=== PATIENT | female | born 1965 | race Caucasian/White ===

== ENCOUNTER 2023-06-23 09:45 | Outpatient (RCR) | payer OTHER, SELFPAY ==
--- NOTE | 2023-05-07 14:30 | PT.OPPOC ---
Physical, Occupational & Speech Therapy At [facility] Current Diagnoses Other chronic pain (05/07/23) Pain in left shoulder (05/07/23) Stiffness of left shoulder, not elsewhere classified (05/07/23) Other injury of muscle, fascia and tendon of long head of biceps, left arm, subsequent encounter (05/07/23) Visit Care Team Role Provider Type Ayaka Oneill MD Attending Provider Physician Family Provider Primary Care Provider Referring Provider Specialty: Family Practice Address: [address] [place] [address], [facility] Fax: Email: [email or web address] Plan Of Care PT-OP-T Assessment and Plan Start: 05/07/23 15:49 Freq: Status: Active Protocol: Document 05/07/23 13:45 DCW (Rec: 05/08/23 11:50 DCW [id number]) Physical Therapy Assessment Rehab Potential Rehabilitation Potential Good Evaluation Complexity Number of Personal Factors/Comorbidities 1-2 Number of Body Systems Impaired 1-2 Clinical Presentation at Evaluation Stable Impairments Impairments Activity Tolerance,Functional Activities,Functional Mobility ,Pain,ROM,Soft Tissue Mobility ,Strength Goals Two Impairment Limited left shoulder flexion (124?) and abduction (107?) ROM Conservation Engineer Goal (LTG) Pt to demonstrate improve left shoulder flexion and extension to at least 150? each in order to improve ability to perform overhead household activities. LTG Duration 07/06/23 One Impairment Pt does not have an appropriate home exercise program Short Term Goal (STG) Pt to be independent and compliant with an appropriate HEP STG Duration 06/05/23 Assessment Summary Assessment Pt presents with signs and symptoms consistent with overuse injury of her left shoulder. Based on point- specific location of pain ( bicipital groove), positive biceps testing, and pain with positioning that specifically elongates the long head biceps tendon, most likely diagnosis would likely be Bicipital tendonitis vs rotator cuff injury vs labral involvement, however difficult to truly DDx without further advanced imaging. Pt provided hnd-out for HEP focusing on strengthening shoulder girdle, as well as discussion on limiting exercises/functional activities which create biceps overuse. Pt should benefit from skilled therapy focusing on continued strengthening, inflammation management, shoulder mobility, and pain- control. Physical Therapy Plan Frequency and Duration Frequency of Treatment 2x/Week Plan of Care Start Date 05/07/23 Plan of Care End Date 07/06/23 Therapeutic Interventions Therapeutic Interventions Home Exercise Program,Joint Mobilizations,Manual Therapy, Patient/Caregiver Education, Self-Care/Home Management,Soft Tissue Mobilization, Therapeutic Activities, Therapeutic Exercises Modalities Cold Pack/Ice Massage,Electric Stimulation,Hot Packs, Ultrasound Next Visit Focus/Plan Next Note Type Treatment Note Next Visit Plan Shoulder ROM/flexibility, Shoulder girdle strengthening, pain-control modalities as needed Plan of Care Dates Plan of Care Start Date 05/07/23 Plan of Care End Date 07/06/23 Electronically Signed by: Martin John, PT 05/08/23 2018 If you are in agreement with this Plan of Care, please return a signed and dated copy. I have reviewed this Plan of Care and certify that the skilled therapy services above are required to meet the patient?s needs. Physician Signature Date Printed Name and Credentials Clinical Instructor Signature Printed Name and Credentials
--- NOTE | 2023-05-07 14:30 | PT.OIE ---
Current Diagnoses Other chronic pain (05/07/23) Pain in left shoulder (05/07/23) Stiffness of left shoulder, not elsewhere classified (05/07/23) Other injury of muscle, fascia and tendon of long head of biceps, left arm, subsequent encounter (05/07/23) Visit Care Team Role Provider Type Ayaka Oneill MD Attending Provider Physician Family Provider Primary Care Provider Referring Provider Specialty: Family Practice Address: [address] [place] [address], [facility] Fax: Email: [email or web address] Physical Therapy Initial Evaluation PT-OP-A Visit Information Start: 05/07/23 15:49 Freq: Status: Active Protocol: Document 05/07/23 13:45 DCW (Rec: 05/07/23 15:58 DCW [id number]) Out-Patient Physical Therapy Visit Information Visit Information Visit Type Initial Evaluation Visit Start Time 13:45 Visit Stop Time 14:30 Visit Number 1 Number of MANAGER BRIDGE Visits 0 Evaluation Information Evaluation Date 05/07/23 PT-OP-B Current Condition Start: 05/07/23 15:49 Freq: Status: Active Protocol: Document 05/07/23 13:45 DCW (Rec: 05/08/23 11:50 DCW [id number]) Current Condition History of Current Condition Onset Date Seven month history Current Complaints left anterior shoulder pain, limited ROM History of Current Condition Pt is a 57 year old female presenting with a seven month history of anterior left shoulder pain after spending a few weeks moving to the area from [place]. Notes there was a lot of lifting and carrying household objects around, but no specific traumatic event, just increasing general soreness during the move. Notes it has significantly improved over the past few months, but still really bothers her when she needs to reach back or lift something with her left arm. Notes that heat was fairly beneficial to begin with, and helped some with the pain, but she is not longer feeling like it makes much difference. Pt notes pain is generally at a very point-specific place on her anterior shoulder. Does struggle some when sleeping, specifically finding comfortable positions to place her arm in. PT-OP-C Subjective Start: 05/07/23 15:49 Freq: Status: Active Protocol: Document 05/07/23 13:45 DCW (Rec: 05/08/23 09:35 DCW [id number]) OP-PT Subjective Patient Comments Patient Comments It is doing way better than it had been when it first started. Patient Questionnaires Quick Dash- Upper Extremity Quick Dash UE Score 25% Quick Dash UE Impairment 20 to 39% Impaired (Score 20- 39) OP-PT Pain Assessment Location Left Anterior Shoulder Intensity 4 Scale Used Numeric (0 - 10) Description Aching,Sharp,Tender,With Movement Frequency Intermittent Other Pain Aggravating Factors Reaching back, carrying objects PT-OP-F Manual Assessment Start: 05/07/23 15:49 Freq: Status: Active Protocol: Document 05/07/23 13:45 DCW (Rec: 05/08/23 09:35 DCW [id number]) Manual Assessments Soft Tissue Assessment Soft Tissue Mobility Assessment Tenderness to palpation 3/4: Wincing and withdraw along Left long head biceps tendon Joint Mobility Assessment Joint Mobility Assessment No notable instability or joint surface derangement with active or passive testing PT-OP-K Range of Motion Start: 05/07/23 15:49 Freq: Status: Active Protocol: Document 05/07/23 13:45 DCW (Rec: 05/07/23 15:55 DCW [id number]) Shoulder Goniometric Range of Motion Shoulder Left Passive Shoulder ROM WFL Yes Testing Position Sitting Flexion 170 Abduction 180 Left Active Shoulder ROM WFL No Testing Position Sitting Flexion 124 Abduction 107 External Rotation at 0 degrees Abduction 68 Internal Rotation Behind Back (text) T12 PT-OP-L Special Tests Start: 05/07/23 15:49 Freq: Status: Active Protocol: Document 05/07/23 13:45 DCW (Rec: 05/07/23 15:55 DCW [id number]) Special Tests Shoulder Special Tests Speed's Biceps Test Results Positive Left Passive ER Rotator Cuff Test Results Positive L at end-range Lift-Off Rotator Cuff Test Results Negative Montiel Hari Impingement Test Results Negative Grind Labrum Test Results Negative Empty Can Test Results Negative Drop Arm Rotator Cuff Test Results Negative Clunk Test Test Results Negative Belly Press Test Results Negative Apprehension Test Test Results Negative Anterior Draw Test Results Negative PT-OP-M Strength Start: 05/07/23 15:49 Freq: Status: Active Protocol: Document 05/07/23 13:45 DCW (Rec: 05/07/23 15:55 DCW [id number]) Shoulder Strength Shoulder Manual Muscle Testing Right Flexion 4+ Good+ Abduction (C5) 4+ Good+ External Rotation 5 Normal Internal Rotation 4+ Good+ Left Flexion 4 Good Abduction (C5) 4 Good External Rotation 5 Normal Internal Rotation 4- Good- PT-OP-Q Treatments Start: 05/07/23 15:49 Freq: Status: Active Protocol: Document 05/07/23 13:45 DCW (Rec: 05/07/23 15:58 DCW [id number]) Therapeutic Exercises Standing Exercises ER/IR Standing Exercise Name ER/IR Side bilateral Resistance Lv 2 Flexion Standing Exercise Name Shoulder Flexion Side left Resistance Lv 2 Abduction Standing Exercise Name Shoulder Abduction Side left Resistance Lv 2 Rows Standing Exercise Name Rows Side bilateral Resistance Lv 2 PT-OP-T Assessment and Plan Start: 05/07/23 15:49 Freq: Status: Active Protocol: Document 05/07/23 13:45 DCW (Rec: 05/08/23 11:50 DCW [id number]) Physical Therapy Assessment Rehab Potential Rehabilitation Potential Good Evaluation Complexity Number of Personal Factors/Comorbidities 1-2 Number of Body Systems Impaired 1-2 Clinical Presentation at Evaluation Stable Impairments Impairments Activity Tolerance,Functional Activities,Functional Mobility ,Pain,ROM,Soft Tissue Mobility ,Strength Goals Two Impairment Limited left shoulder flexion (124?) and abduction (107?) ROM Lens Blocker Goal (LTG) Pt to demonstrate improve left shoulder flexion and extension to at least 150? each in order to improve ability to perform overhead household activities. LTG Duration 07/06/23 One Impairment Pt does not have an appropriate home exercise program Short Term Goal (STG) Pt to be independent and compliant with an appropriate HEP STG Duration 06/05/23 Assessment Summary Assessment Pt presents with signs and symptoms consistent with overuse injury of her left shoulder. Based on point- specific location of pain ( bicipital groove), positive biceps testing, and pain with positioning that specifically elongates the long head biceps tendon, most likely diagnosis would likely be Bicipital tendonitis vs rotator cuff injury vs labral involvement, however difficult to truly DDx without further advanced imaging. Pt provided hnd-out for HEP focusing on strengthening shoulder girdle, as well as discussion on limiting exercises/functional activities which create biceps overuse. Pt should benefit from skilled therapy focusing on continued strengthening, inflammation management, shoulder mobility, and pain- control. Physical Therapy Plan Frequency and Duration Frequency of Treatment 2x/Week Plan of Care Start Date 05/07/23 Plan of Care End Date 07/06/23 Therapeutic Interventions Therapeutic Interventions Home Exercise Program,Joint Mobilizations,Manual Therapy, Patient/Caregiver Education, Self-Care/Home Management,Soft Tissue Mobilization, Therapeutic Activities, Therapeutic Exercises Modalities Cold Pack/Ice Massage,Electric Stimulation,Hot Packs, Ultrasound Next Visit Focus/Plan Next Note Type Treatment Note Next Visit Plan Shoulder ROM/flexibility, Shoulder girdle strengthening, pain-control modalities as needed
--- NOTE | 2023-05-19 11:53 | PT.OTN ---
Current Diagnoses Other chronic pain (05/19/23) Pain in left shoulder (05/19/23) Stiffness of left shoulder, not elsewhere classified (05/19/23) Other injury of muscle, fascia and tendon of long head of biceps, left arm, subsequent encounter (05/19/23) Physical Therapy Treatment Note PT-OP-A Visit Information Start: 05/07/23 15:49 Freq: Status: Active Protocol: Document 05/19/23 11:15 DCW (Rec: 05/19/23 11:53 DCW [id number]) Out-Patient Physical Therapy Visit Information Visit Information Visit Type Treatment Note Visit Start Time 11:15 Visit Stop Time 11:45 Visit Number 2 Number of C[employer]ED [employer] MAKER Visits 0 Evaluation Information Evaluation Date 05/07/23 PT-OP-B Current Condition Start: 05/07/23 15:49 Freq: Status: Active Protocol: Document 05/07/23 13:45 DCW (Rec: 05/08/23 11:50 DCW [id number]) Current Condition History of Current Condition Onset Date Seven month history Current Complaints left anterior shoulder pain, limited ROM History of Current Condition Pt is a 57 year old female presenting with a seven month history of anterior left shoulder pain after spending a few weeks moving to the area from [place]. Notes there was a lot of lifting and carrying household objects around, but no specific traumatic event, just increasing general soreness during the move. Notes it has significantly improved over the past few months, but still really bothers her when she needs to reach back or lift something with her left arm. Notes that heat was fairly beneficial to begin with, and helped some with the pain, but she is not longer feeling like it makes much difference. Pt notes pain is generally at a very point-specific place on her anterior shoulder. Does struggle some when sleeping, specifically finding comfortable positions to place her arm in. PT-OP-C Subjective Start: 05/07/23 15:49 Freq: Status: Active Protocol: Document 05/19/23 11:15 DCW (Rec: 05/19/23 11:53 DCW [id number]) OP-PT Subjective Patient Comments Patient Comments It's actually doing really good. Significantly improved ROM. Admits she has slacked off exercises the past few days, and has noticed a slight return of general soreness. PT-OP-F Manual Assessment Start: 05/07/23 15:49 Freq: Status: Active Protocol: Document 05/07/23 13:45 DCW (Rec: 05/08/23 09:35 DCW [id number]) Manual Assessments Soft Tissue Assessment Soft Tissue Mobility Assessment Tenderness to palpation 3/4: Wincing and withdraw along Left long head biceps tendon Joint Mobility Assessment Joint Mobility Assessment No notable instability or joint surface derangement with active or passive testing PT-OP-K Range of Motion Start: 05/07/23 15:49 Freq: Status: Active Protocol: Document 05/07/23 13:45 DCW (Rec: 05/07/23 15:55 DCW [id number]) Shoulder Goniometric Range of Motion Shoulder Left Passive Shoulder ROM WFL Yes Testing Position Sitting Flexion 170 Abduction 180 Left Active Shoulder ROM WFL No Testing Position Sitting Flexion 124 Abduction 107 External Rotation at 0 degrees Abduction 68 Internal Rotation Behind Back (text) T12 PT-OP-L Special Tests Start: 05/07/23 15:49 Freq: Status: Active Protocol: Document 05/07/23 13:45 DCW (Rec: 05/07/23 15:55 DCW [id number]) Special Tests Shoulder Special Tests Speed's Biceps Test Results Positive Left Passive ER Rotator Cuff Test Results Positive L at end-range Lift-Off Rotator Cuff Test Results Negative Montiel Hari Impingement Test Results Negative Grind Labrum Test Results Negative Empty Can Test Results Negative Drop Arm Rotator Cuff Test Results Negative Clunk Test Test Results Negative Belly Press Test Results Negative Apprehension Test Test Results Negative Anterior Draw Test Results Negative PT-OP-M Strength Start: 05/07/23 15:49 Freq: Status: Active Protocol: Document 05/07/23 13:45 DCW (Rec: 05/07/23 15:55 DCW [id number]) Shoulder Strength Shoulder Manual Muscle Testing Right Flexion 4+ Good+ Abduction (C5) 4+ Good+ External Rotation 5 Normal Internal Rotation 4+ Good+ Left Flexion 4 Good Abduction (C5) 4 Good External Rotation 5 Normal Internal Rotation 4- Good- PT-OP-Q Treatments Start: 05/07/23 15:49 Freq: Status: Active Protocol: Document 05/19/23 11:15 DCW (Rec: 05/19/23 11:53 DCW [id number]) Gym Equipment Therapeutic Ball I's, Y's, T's Exercise Details Prone I's, Y's, T's Ball Size/Color Green - 65 cm 4# Body Position Prone Therapeutic Exercises Supine Exercises Horizontal Adduction Supine Exercise Name Horizontal Adduction Side bilateral Resistance 4# Serratus Punch Supine Exercise Name Serratus Punch Side bilateral Resistance 4#->0# Comments Mild biceps irritation /c weight Other Exercises Body Blade Other Exercise Name Body Blade Side left Resistance Yellow Comments Flexion, Abduction Wall Push-ups Other Exercise Name Wall push-ups Comments <> and W hand positions Resisted Ambulation Other Exercise Name Resisted UE side-stepping Resistance Green loop PT-OP-T Assessment and Plan Start: 05/07/23 15:49 Freq: Status: Active Protocol: Document 05/19/23 11:15 DCW (Rec: 05/19/23 11:53 DCW [id number]) Physical Therapy Assessment Assessment Summary Assessment Pt doing very well, already demonstrating nearly full ROM in left shoulder, significant decrease in overall pain/ discomfort. Pt feeling comfortable with independent HEP. II's, Y's, T'st continues to feel this good at her next visit, will likely be appropriate for discharge at that time. Physical Therapy Plan Frequency and Duration Frequency of Treatment 2x/Week Plan of Care Start Date 05/07/23 Plan of Care End Date 07/06/23 Therapeutic Interventions Therapeutic Interventions Home Exercise Program,Joint Mobilizations,Manual Therapy, Patient/Caregiver Education, Self-Care/Home Management,Soft Tissue Mobilization, Therapeutic Activities, Therapeutic Exercises Modalities Cold Pack/Ice Massage,Electric Stimulation,Hot Packs, Ultrasound Next Visit Focus/Plan Next Note Type Treatment Note Next Visit Plan Shoulder ROM/flexibility, Shoulder girdle strengthening, pain-control modalities as needed
--- NOTE | 2023-05-26 12:15 | PT.OTN ---
Current Diagnoses Other chronic pain (05/26/23) Pain in left shoulder (05/26/23) Stiffness of left shoulder, not elsewhere classified (05/26/23) Other injury of muscle, fascia and tendon of long head of biceps, left arm, subsequent encounter (05/26/23) Physical Therapy Treatment Note PT-OP-A Visit Information Start: 05/07/23 15:49 Freq: Status: Active Protocol: Document 05/26/23 11:11 AB (Rec: 05/26/23 12:15 AB [id number]) Out-Patient Physical Therapy Visit Information Visit Information Visit Type Treatment Note Visit Note Access Code: [email or web address] Visit Start Time 11:16 Visit Stop Time 11:59 Visit Number 3 Number of MECHANICAL ENGINEERING DRAFTSPERSON Visits 1 Evaluation Information Evaluation Date 05/07/23 PT-OP-B Current Condition Start: 05/07/23 15:49 Freq: Status: Active Protocol: Document 05/07/23 13:45 DCW (Rec: 05/08/23 11:50 DCW [id number]) Current Condition History of Current Condition Onset Date Seven month history Current Complaints left anterior shoulder pain, limited ROM History of Current Condition Pt is a 57 year old female presenting with a seven month history of anterior left shoulder pain after spending a few weeks moving to the area from [place]. Notes there was a lot of lifting and carrying household objects around, but no specific traumatic event, just increasing general soreness during the move. Notes it has significantly improved over the past few months, but still really bothers her when she needs to reach back or lift something with her left arm. Notes that heat was fairly beneficial to begin with, and helped some with the pain, but she is not longer feeling like it makes much difference. Pt notes pain is generally at a very point-specific place on her anterior shoulder. Does struggle some when sleeping, specifically finding comfortable positions to place her arm in. PT-OP-C Subjective Start: 05/07/23 15:49 Freq: Status: Active Protocol: Document 05/26/23 11:11 AB (Rec: 05/26/23 12:15 AB [id number]) OP-PT Subjective Patient Comments Patient Comments Patient reports she feel off the wagon with the exercises. Patient reports she is doing good, comments texting with arms out stretched flared up the shoulder, which resolved with in half a day. AROM 144 deg left shoulder flexion start of session. PT-OP-F Manual Assessment Start: 05/07/23 15:49 Freq: Status: Active Protocol: Document 05/07/23 13:45 DCW (Rec: 05/08/23 09:35 DCW [id number]) Manual Assessments Soft Tissue Assessment Soft Tissue Mobility Assessment Tenderness to palpation 3/4: Wincing and withdraw along Left long head biceps tendon Joint Mobility Assessment Joint Mobility Assessment No notable instability or joint surface derangement with active or passive testing PT-OP-K Range of Motion Start: 05/07/23 15:49 Freq: Status: Active Protocol: Document 05/07/23 13:45 DCW (Rec: 05/07/23 15:55 DCW [id number]) Shoulder Goniometric Range of Motion Shoulder Left Passive Shoulder ROM WFL Yes Testing Position Sitting Flexion 170 Abduction 180 Left Active Shoulder ROM WFL No Testing Position Sitting Flexion 124 Abduction 107 External Rotation at 0 degrees Abduction 68 Internal Rotation Behind Back (text) T12 PT-OP-L Special Tests Start: 05/07/23 15:49 Freq: Status: Active Protocol: Document 05/07/23 13:45 DCW (Rec: 05/07/23 15:55 DCW [id number]) Special Tests Shoulder Special Tests Speed's Biceps Test Results Positive Left Passive ER Rotator Cuff Test Results Positive L at end-range Lift-Off Rotator Cuff Test Results Negative Montiel Hari Impingement Test Results Negative Grind Labrum Test Results Negative Empty Can Test Results Negative Drop Arm Rotator Cuff Test Results Negative Clunk Test Test Results Negative Belly Press Test Results Negative Apprehension Test Test Results Negative Anterior Draw Test Results Negative PT-OP-M Strength Start: 05/07/23 15:49 Freq: Status: Active Protocol: Document 05/07/23 13:45 DCW (Rec: 05/07/23 15:55 DCW [id number]) Shoulder Strength Shoulder Manual Muscle Testing Right Flexion 4+ Good+ Abduction (C5) 4+ Good+ External Rotation 5 Normal Internal Rotation 4+ Good+ Left Flexion 4 Good Abduction (C5) 4 Good External Rotation 5 Normal Internal Rotation 4- Good- PT-OP-Q Treatments Start: 05/07/23 15:49 Freq: Status: Active Protocol: Document 05/26/23 11:11 AB (Rec: 05/26/23 12:15 AB [id number]) Therapeutic Exercises Supine Exercises pec stretch Supine Exercise Name on foam roller Side bilateral Equipment Used soft foam roller Reps/Minutes 3 min Comments Verbal cues mini band supine Side bilateral Resistance single thickness level one light blue band Reps/Minutes X2 and X 10 Comments reports decreased pain when performed post pec stretch Serratus Punch Supine Exercise Name Serratus Punch Side bilateral Resistance 4 # Reps/Minutes X10 Prone Exercises prone extension Prone Exercise Name left shoulder Side left Equipment Used 2lb Reps/Minutes X10 Comments Monitored for pain prone flexion Prone Exercise Name left shoulder Side left Resistance 2lb Reps/Minutes X10 Comments monitored for pain Prone T Prone Exercise Name left shoulder Side left Resistance 2lb Reps/Minutes X10 Comments Monit for pain Sidelying Exercises AROM left shoulder ER Side left Reps/Minutes X10 Comments Verbal cues Standing Exercises push up plus on wall Standing Exercise Name triangle and W position Side bilateral Reps/Minutes X10 Comments verbal and visual cues for push up plus Rows Standing Exercise Name Row Side bilateral Resistance peach band 1 , light green band 3 Reps/Minutes X10 X 2 Manual Therapy Treatment Soft Tissue Mobilization left pec, post cuff, UT/ levator scap Mobilization Type Cross-Friction,Rolling Intensity/Depth Moderate Body Position Sidelying Comments Hooklying and sidelying prior to pec stretch and scapular mobilization, monitored forpain Joint Mobilizations Left scapula Direction depression and adduction Grade IV Body Position Sidelying Reps/Duration 12 Comments monitored for pain Left GH joint Direction AP and inf Grade IV Reps/Duration 15 Comments monitored for pain Self-Care/Home Management Treatment Education Other Education Patient ed trial of HEP at least every other day Activities Self-Care/Home Management Activities Mini band supine single thicknees ( Er with flexion ), and pec stretch on foam roller to HEP PT-OP-T Assessment and Plan Start: 05/07/23 15:49 Freq: Status: Active Protocol: Document 05/26/23 11:11 AB (Rec: 05/26/23 12:15 AB [id number]) Physical Therapy Assessment Goals Two Impairment Limited left shoulder flexion (124?) and abduction (107?) ROM Mcfp Goal (LTG) Pt to demonstrate improve left shoulder flexion and extension to at least 150? each in order to improve ability to perform overhead household activities. LTG Duration 07/06/23 One Impairment Pt does not have an appropriate home exercise program Short Term Goal (STG) Pt to be independent and compliant with an appropriate HEP STG Duration 06/05/23 Assessment Summary Assessment Patient reports feeling a little sore end of session. AROM left shoulder flexion 151 deg end of session which shoulde allow Kezia to reach items placed at higher levels in the home. Physical Therapy Plan Frequency and Duration Frequency of Treatment 2x/Week Plan of Care Start Date 05/07/23 Plan of Care End Date 07/06/23 Next Visit Focus/Plan Next Note Type Treatment Note Next Visit Plan Shoulder ROM/flexibility, Shoulder girdle strengthening, pain-control modalities as needed. Assess compliance with HEP
--- NOTE | 2023-06-18 11:17 | PT.OTN ---
Current Diagnoses Other chronic pain (06/18/23) Pain in left shoulder (06/18/23) Stiffness of left shoulder, not elsewhere classified (06/18/23) Other injury of muscle, fascia and tendon of long head of biceps, left arm, subsequent encounter (06/18/23) Physical Therapy Treatment Note PT-OP-A Visit Information Start: 05/07/23 15:49 Freq: Status: Active Protocol: Document 06/18/23 10:30 DCW (Rec: 06/18/23 11:17 DCW [id number]) Out-Patient Physical Therapy Visit Information Visit Information Visit Type Treatment Note Visit Start Time 10:30 Visit Stop Time 11:15 Visit Number 4 Number of JEWISH THOUGHT PROFESSOR Visits 0 Evaluation Information Evaluation Date 05/07/23 PT-OP-B Current Condition Start: 05/07/23 15:49 Freq: Status: Active Protocol: Document 05/07/23 13:45 DCW (Rec: 05/08/23 11:50 DCW [id number]) Current Condition History of Current Condition Onset Date Seven month history Current Complaints left anterior shoulder pain, limited ROM History of Current Condition Pt is a 57 year old female presenting with a seven month history of anterior left shoulder pain after spending a few weeks moving to the area from [place]. Notes there was a lot of lifting and carrying household objects around, but no specific traumatic event, just increasing general soreness during the move. Notes it has significantly improved over the past few months, but still really bothers her when she needs to reach back or lift something with her left arm. Notes that heat was fairly beneficial to begin with, and helped some with the pain, but she is not longer feeling like it makes much difference. Pt notes pain is generally at a very point-specific place on her anterior shoulder. Does struggle some when sleeping, specifically finding comfortable positions to place her arm in. PT-OP-C Subjective Start: 05/07/23 15:49 Freq: Status: Active Protocol: Document 06/18/23 10:30 DCW (Rec: 06/18/23 11:17 DCW [id number]) OP-PT Subjective Patient Comments Patient Comments Pt had mole removed from right shoulder last week, surgeon told her to stop HEP to allow for healing. Has been able to recently return to some activity, still bothers her when sleeping on it, ROM is improving. PT-OP-F Manual Assessment Start: 05/07/23 15:49 Freq: Status: Active Protocol: Document 05/07/23 13:45 DCW (Rec: 05/08/23 09:35 DCW [id number]) Manual Assessments Soft Tissue Assessment Soft Tissue Mobility Assessment Tenderness to palpation 3/4: Wincing and withdraw along Left long head biceps tendon Joint Mobility Assessment Joint Mobility Assessment No notable instability or joint surface derangement with active or passive testing PT-OP-K Range of Motion Start: 05/07/23 15:49 Freq: Status: Active Protocol: Document 05/07/23 13:45 DCW (Rec: 05/07/23 15:55 DCW [id number]) Shoulder Goniometric Range of Motion Shoulder Left Passive Shoulder ROM WFL Yes Testing Position Sitting Flexion 170 Abduction 180 Left Active Shoulder ROM WFL No Testing Position Sitting Flexion 124 Abduction 107 External Rotation at 0 degrees Abduction 68 Internal Rotation Behind Back (text) T12 PT-OP-L Special Tests Start: 05/07/23 15:49 Freq: Status: Active Protocol: Document 05/07/23 13:45 DCW (Rec: 05/07/23 15:55 DCW [id number]) Special Tests Shoulder Special Tests Speed's Biceps Test Results Positive Left Passive ER Rotator Cuff Test Results Positive L at end-range Lift-Off Rotator Cuff Test Results Negative Montiel Hari Impingement Test Results Negative Grind Labrum Test Results Negative Empty Can Test Results Negative Drop Arm Rotator Cuff Test Results Negative Clunk Test Test Results Negative Belly Press Test Results Negative Apprehension Test Test Results Negative Anterior Draw Test Results Negative PT-OP-M Strength Start: 05/07/23 15:49 Freq: Status: Active Protocol: Document 05/07/23 13:45 DCW (Rec: 05/07/23 15:55 DCW [id number]) Shoulder Strength Shoulder Manual Muscle Testing Right Flexion 4+ Good+ Abduction (C5) 4+ Good+ External Rotation 5 Normal Internal Rotation 4+ Good+ Left Flexion 4 Good Abduction (C5) 4 Good External Rotation 5 Normal Internal Rotation 4- Good- PT-OP-Q Treatments Start: 05/07/23 15:49 Freq: Status: Active Protocol: Document 06/18/23 10:30 DCW (Rec: 06/18/23 11:17 DCW [id number]) Therapeutic Exercises Prone Exercises prone extension Prone Exercise Name left shoulder Side left Equipment Used 4lb Reps/Minutes X10 prone flexion Prone Exercise Name left shoulder Side left Resistance 4lb Reps/Minutes X10 Prone T Prone Exercise Name left shoulder Side left Resistance 4lb Reps/Minutes X10 Manual Therapy Treatment Soft Tissue Mobilization left pec, post cuff, UT/ levator scap Mobilization Type Cross-Friction,Rolling Intensity/Depth Moderate Body Position Hooklying Joint Mobilizations Left scapula Direction depression and adduction Grade III Body Position Supine Comments monitored for pain Left GH joint Direction AP and inf Grade III Body Position Supine Comments monitored for pain PT-OP-T Assessment and Plan Start: 05/07/23 15:49 Freq: Status: Active Protocol: Document 06/18/23 10:30 DCW (Rec: 06/18/23 11:17 DCW [id number]) Physical Therapy Assessment Goals Two Impairment Limited left shoulder flexion (124?) and abduction (107?) ROM Intermediate Goal (LTG) Pt to demonstrate improve left shoulder flexion and extension to at least 150? each in order to improve ability to perform overhead household activities. LTG Duration 07/06/23 One Impairment Pt does not have an appropriate home exercise program Short Term Goal (STG) Pt to be independent and compliant with an appropriate HEP STG Duration 06/05/23 Assessment Summary Assessment Pre-activity ROM measured today, 150? with each flexion and abduction. Has actually met ROM goal. Patient and therapist agree that since she has had a bit of a setback following decreased activity the past week, would prefer another 1-2 visit to ensure she progresses as expected. Physical Therapy Plan Frequency and Duration Frequency of Treatment 2x/Week Plan of Care Start Date 05/07/23 Plan of Care End Date 07/06/23 Therapeutic Interventions Therapeutic Interventions Home Exercise Program,Joint Mobilizations,Manual Therapy, Patient/Caregiver Education, Self-Care/Home Management,Soft Tissue Mobilization, Therapeutic Activities, Therapeutic Exercises Modalities Cold Pack/Ice Massage,Electric Stimulation,Hot Packs, Ultrasound Next Visit Focus/Plan Next Note Type Treatment Note Next Visit Plan Shoulder ROM/flexibility, Shoulder girdle strengthening, pain-control modalities as needed. Assess compliance with HEP
--- NOTE | 2023-06-23 10:29 | PT.OTN ---
Current Diagnoses Other chronic pain (06/23/23) Pain in left shoulder (06/23/23) Stiffness of left shoulder, not elsewhere classified (06/23/23) Other injury of muscle, fascia and tendon of long head of biceps, left arm, subsequent encounter (06/23/23) Physical Therapy Treatment Note PT-OP-A Visit Information Start: 05/07/23 15:49 Freq: Status: Active Protocol: Document 06/23/23 09:45 DCW (Rec: 06/23/23 10:29 DCW [id number]) Out-Patient Physical Therapy Visit Information Visit Information Visit Type Treatment Note Visit Start Time 09:45 Visit Stop Time 10:30 Visit Number 5 Number of DIRECTOR HUMAN SERVICES Visits 0 Evaluation Information Evaluation Date 05/07/23 PT-OP-B Current Condition Start: 05/07/23 15:49 Freq: Status: Active Protocol: Document 05/07/23 13:45 DCW (Rec: 05/08/23 11:50 DCW [id number]) Current Condition History of Current Condition Onset Date Seven month history Current Complaints left anterior shoulder pain, limited ROM History of Current Condition Pt is a 57 year old female presenting with a seven month history of anterior left shoulder pain after spending a few weeks moving to the area from [place]. Notes there was a lot of lifting and carrying household objects around, but no specific traumatic event, just increasing general soreness during the move. Notes it has significantly improved over the past few months, but still really bothers her when she needs to reach back or lift something with her left arm. Notes that heat was fairly beneficial to begin with, and helped some with the pain, but she is not longer feeling like it makes much difference. Pt notes pain is generally at a very point-specific place on her anterior shoulder. Does struggle some when sleeping, specifically finding comfortable positions to place her arm in. PT-OP-C Subjective Start: 05/07/23 15:49 Freq: Status: Active Protocol: Document 06/23/23 09:45 DCW (Rec: 06/23/23 10:29 DCW [id number]) OP-PT Subjective Patient Comments Patient Comments Wants to get back to [place] next month, hoping to be able to do it pain-free. PT-OP-F Manual Assessment Start: 05/07/23 15:49 Freq: Status: Active Protocol: Document 05/07/23 13:45 DCW (Rec: 05/08/23 09:35 DCW [id number]) Manual Assessments Soft Tissue Assessment Soft Tissue Mobility Assessment Tenderness to palpation 3/4: Wincing and withdraw along Left long head biceps tendon Joint Mobility Assessment Joint Mobility Assessment No notable instability or joint surface derangement with active or passive testing PT-OP-K Range of Motion Start: 05/07/23 15:49 Freq: Status: Active Protocol: Document 05/07/23 13:45 DCW (Rec: 05/07/23 15:55 DCW [id number]) Shoulder Goniometric Range of Motion Shoulder Left Passive Shoulder ROM WFL Yes Testing Position Sitting Flexion 170 Abduction 180 Left Active Shoulder ROM WFL No Testing Position Sitting Flexion 124 Abduction 107 External Rotation at 0 degrees Abduction 68 Internal Rotation Behind Back (text) T12 PT-OP-L Special Tests Start: 05/07/23 15:49 Freq: Status: Active Protocol: Document 05/07/23 13:45 DCW (Rec: 05/07/23 15:55 DCW [id number]) Special Tests Shoulder Special Tests Speed's Biceps Test Results Positive Left Passive ER Rotator Cuff Test Results Positive L at end-range Lift-Off Rotator Cuff Test Results Negative Montiel Hari Impingement Test Results Negative Grind Labrum Test Results Negative Empty Can Test Results Negative Drop Arm Rotator Cuff Test Results Negative Clunk Test Test Results Negative Belly Press Test Results Negative Apprehension Test Test Results Negative Anterior Draw Test Results Negative PT-OP-M Strength Start: 05/07/23 15:49 Freq: Status: Active Protocol: Document 05/07/23 13:45 DCW (Rec: 05/07/23 15:55 DCW [id number]) Shoulder Strength Shoulder Manual Muscle Testing Right Flexion 4+ Good+ Abduction (C5) 4+ Good+ External Rotation 5 Normal Internal Rotation 4+ Good+ Left Flexion 4 Good Abduction (C5) 4 Good External Rotation 5 Normal Internal Rotation 4- Good- PT-OP-Q Treatments Start: 05/07/23 15:49 Freq: Status: Active Protocol: Document 06/23/23 09:45 DCW (Rec: 06/23/23 10:29 DCW [id number]) Cardio Equipment Upper Body Ergometer (UBE) Duration (Minutes) 5 RPM 60 Seat Position 11 Height 2.5 Therapeutic Exercises Prone Exercises prone extension Prone Exercise Name left shoulder Side left Equipment Used 4lb Reps/Minutes X15 prone flexion Prone Exercise Name left shoulder Side left Resistance 4lb Reps/Minutes X15 Prone T Prone Exercise Name left shoulder Side left Resistance 4lb Reps/Minutes X15 Standing Exercises Doorway stretch Standing Exercise Name overhead doorway stretch Side left push up plus on wall Standing Exercise Name triangle and W position Side bilateral Reps/Minutes X10 Comments verbal and visual cues for push up plus Manual Therapy Treatment Soft Tissue Mobilization left pec, post cuff, UT/ levator scap Mobilization Type Cross-Friction,Rolling Intensity/Depth Moderate Body Position Hooklying Joint Mobilizations Left scapula Direction depression and adduction Grade III Body Position Supine Comments monitored for pain Left GH joint Direction AP and inf Grade III Body Position Supine Comments monitored for pain PT-OP-T Assessment and Plan Start: 05/07/23 15:49 Freq: Status: Active Protocol: Document 06/23/23 09:45 DCW (Rec: 06/23/23 10:29 DCW [id number]) Physical Therapy Assessment Impairments Impairments Activity Tolerance,Functional Activities,Functional Mobility ,Pain,ROM,Soft Tissue Mobility ,Strength Goals Two Impairment Limited left shoulder flexion (124?) and abduction (107?) ROM Mcc Goal (LTG) Pt to demonstrate improve left shoulder flexion and extension to at least 150? each in order to improve ability to perform overhead household activities. LTG Duration 07/06/23 One Impairment Pt does not have an appropriate home exercise program Short Term Goal (STG) Pt to be independent and compliant with an appropriate HEP STG Duration 06/05/23 Assessment Summary Assessment Pt doing well overall, feeling like she has made great improvements. Agreeable to go out and attempt to paddleboard and see if she has any increase in symptoms Physical Therapy Plan Frequency and Duration Frequency of Treatment 2x/Week Plan of Care Start Date 05/07/23 Plan of Care End Date 07/06/23 Therapeutic Interventions Therapeutic Interventions Home Exercise Program,Joint Mobilizations,Manual Therapy, Patient/Caregiver Education, Self-Care/Home Management,Soft Tissue Mobilization, Therapeutic Activities, Therapeutic Exercises Modalities Cold Pack/Ice Massage,Electric Stimulation,Hot Packs, Ultrasound Next Visit Focus/Plan Next Note Type Treatment Note Next Visit Plan Shoulder ROM/flexibility, Shoulder girdle strengthening, pain-control modalities as needed. Assess compliance with HEP
--- NOTE | 2023-07-03 17:06 | PT.OPDS ---
Current Diagnoses Other chronic pain (06/23/23) Pain in left shoulder (06/23/23) Stiffness of left shoulder, not elsewhere classified (06/23/23) Other injury of muscle, fascia and tendon of long head of biceps, left arm, subsequent encounter (06/23/23) Visit Care Team Role Provider Type Ayaka Oneill MD Attending Provider Physician Family Provider Primary Care Provider Referring Provider Specialty: Family Practice Address: [address] [place] [address], [facility] Fax: Email: [email or web address] Visit Number Visit Number 5 Discharge Summary PT-OP-B Current Condition Start: 05/07/23 15:49 Freq: Status: Active Protocol: Document 05/07/23 13:45 DCW (Rec: 05/08/23 11:50 DCW [id number]) Current Condition History of Current Condition Onset Date Seven month history Current Complaints left anterior shoulder pain, limited ROM History of Current Condition Pt is a 57 year old female presenting with a seven month history of anterior left shoulder pain after spending a few weeks moving to the area from [place]. Notes there was a lot of lifting and carrying household objects around, but no specific traumatic event, just increasing general soreness during the move. Notes it has significantly improved over the past few months, but still really bothers her when she needs to reach back or lift something with her left arm. Notes that heat was fairly beneficial to begin with, and helped some with the pain, but she is not longer feeling like it makes much difference. Pt notes pain is generally at a very point-specific place on her anterior shoulder. Does struggle some when sleeping, specifically finding comfortable positions to place her arm in. PT-OP-C Subjective Start: 05/07/23 15:49 Freq: Status: Active Protocol: Document 06/23/23 09:45 DCW (Rec: 06/23/23 10:29 DCW [id number]) OP-PT Subjective Patient Comments Patient Comments Wants to get back to [employer] next month, hoping to be able to do it pain-free. PT-OP-F Manual Assessment Start: 05/07/23 15:49 Freq: Status: Active Protocol: Document 05/07/23 13:45 DCW (Rec: 05/08/23 09:35 DCW [id number]) Manual Assessments Soft Tissue Assessment Soft Tissue Mobility Assessment Tenderness to palpation 3/4: Wincing and withdraw along Left long head biceps tendon Joint Mobility Assessment Joint Mobility Assessment No notable instability or joint surface derangement with active or passive testing PT-OP-K Range of Motion Start: 05/07/23 15:49 Freq: Status: Active Protocol: Document 05/07/23 13:45 DCW (Rec: 05/07/23 15:55 DCW [id number]) Shoulder Goniometric Range of Motion Shoulder Left Passive Shoulder ROM WFL Yes Testing Position Sitting Flexion 170 Abduction 180 Left Active Shoulder ROM WFL No Testing Position Sitting Flexion 124 Abduction 107 External Rotation at 0 degrees Abduction 68 Internal Rotation Behind Back (text) T12 PT-OP-L Special Tests Start: 05/07/23 15:49 Freq: Status: Active Protocol: Document 05/07/23 13:45 DCW (Rec: 05/07/23 15:55 DCW [id number]) Special Tests Shoulder Special Tests Speed's Biceps Test Results Positive Left Passive ER Rotator Cuff Test Results Positive L at end-range Lift-Off Rotator Cuff Test Results Negative Montiel Hari Impingement Test Results Negative Grind Labrum Test Results Negative Empty Can Test Results Negative Drop Arm Rotator Cuff Test Results Negative Clunk Test Test Results Negative Belly Press Test Results Negative Apprehension Test Test Results Negative Anterior Draw Test Results Negative PT-OP-M Strength Start: 05/07/23 15:49 Freq: Status: Active Protocol: Document 05/07/23 13:45 DCW (Rec: 05/07/23 15:55 DCW [id number]) Shoulder Strength Shoulder Manual Muscle Testing Right Flexion 4+ Good+ Abduction (C5) 4+ Good+ External Rotation 5 Normal Internal Rotation 4+ Good+ Left Flexion 4 Good Abduction (C5) 4 Good External Rotation 5 Normal Internal Rotation 4- Good- PT-OP-T Assessment and Plan Start: 05/07/23 15:49 Freq: Status: Active Protocol: Document 07/03/23 17:04 DCW (Rec: 07/03/23 17:06 DCW [id number]) Physical Therapy Assessment Goals Two Impairment Limited left shoulder flexion (124?) and abduction (107?) ROM Group Home Goal (LTG) Pt to demonstrate improve left shoulder flexion and extension to at least 150? each in order to improve ability to perform overhead household activities. LTG Duration Met One Impairment Pt does not have an appropriate home exercise program Short Term Goal (STG) Pt to be independent and compliant with an appropriate HEP STG Duration Met Assessment Summary Assessment Pt phoned clinic, canceled appointments, ready for discharge. Reports she is doing well, went paddleboarding with no increased pain. Physical Therapy Plan Discharge Physical Therapy Discharge Reasons Goals Met
== END 2023-07-04 10:39 | disposition home or self-care (01) ==
LOC: PHYS 09:45
PROVIDERS: Family Provider Family Medicine; PCP Family Medicine; Referring Provider Family Medicine; Visit Provider Family Medicine
DX: M25.512 Pain in left shoulder (principal); G89.29 Other chronic pain; S46.19 Other injury of muscle, fascia and tendon of long head of biceps; M25.612 Stiffness of left shoulder, not elsewhere classified
CPT/HCPCS: 97110; 97140; 97161

== ENCOUNTER 2023-10-24 07:21 | Day surgery (SDC) | payer OTHER, SELFPAY ==
[2023-10-24] MEDS: LACTATED RINGERS 1,000 ML 42 ML IV (07:43)
[2023-10-24 08:10] VITALS: TEMP 36.5
--- NOTE | 2023-10-24 08:26 | PM.HP.1 ---
History of Present Illness History of Present Illness Date Patient Seen: 10/24/23 Time Patient Seen: 08:26 Chief complaint: SDC Narrative: First colonoscopy for screening, no family history, no symptoms PFSH Medical History Postmenopausal bleeding Postmenopausal HRT (hormone replacement therapy) Social History Smoking Status: Never smoker Meds Home Medications and Allergies Home Medications Medication Instructions Recorded Confirmed Type ascorbic acid (vitamin C) 1,000 mg 1 g PO Q6H 03/04/23 10/24/23 History capsule buspirone 10 mg tablet 10 mg PO BID PRN anxiety #60 tabs 03/04/23 04/21/23 Rx polysaccharide iron complex 125 mg PO DAILY 03/04/23 04/21/23 History (NovaFerrum) vitamin D3 25 mcg-vitamin K2 20 cap PO 03/04/23 04/21/23 History mcg-olive leaf extract 250 mg capsule peg 3350-sod sulf,qvgtm-kwm-yyl 1,000 ml PO DIRECTED #2,000 mL 06/12/23 Rx 178.7-7.3-0.5-1.12-0.9 gram oral soln (Suflave) estradiol 0.05 mg/24 hr semiweekly 1 patch transdermal 2XW #8 ea 07/03/23 Rx transdermal patch progesterone micronized 200 mg 200 mg PO DAILY Hormone 07/14/23 Rx capsule replacement therapy #90 caps Allergies Allergy/AdvReac Type Severity Reaction Status Date / Time No Known Drug Allergies Allergy Verified 10/24/23 08:18 Review of Systems Review of Systems ROS: Yes All systems reviewed with the patient and are negative except as otherwise documented Exam Vital Signs (past 8 hours): - 10/24/23 08:10 Temperature 97.7 F Const General: cooperative, healthy appearing and comfortable Nutritional Appearance: average body habitus Orientation: alert, awake and oriented x3 HENMT Head: normocephalic and atraumatic Eyes Sclera: sclerae normal Neck Neck: trachea midline Resp Effort & Inspection: normal respiratory effort and able to speak in complete sentences Cardio Rate: regular rate Rhythm: regular rhythm GI Inspection: non-distended Palpation: soft Skin General: elasticity normal Lesions: no lesions Hair: normal Neuro General: patient alert, patient awake and patient oriented x3 Cognition: normal cognition Psych Mental Status: mental status grossly normal Judgment: judgment good Assessment & Plan Assessment & Plan narrative: screening colonoscopy with anesthesia Time-Based Coding :: [TOTAL MINUTES] spent with patient and on the chart (including review of chart, obtaining history, exam, reviewing outside data, placing orders, documenting exam and treatment plan, and counseling patient) on [DATE].
--- NOTE | 2023-10-24 08:57 | PM.OP.COLON ---
Operative Date/Time/Diagnoses Date of procedure: 10/24/23 Time of procedure: 08:57 Pre-op diagnosis: Screening colonoscopy Post-op diagnosis: same Procedure & Clinicians Study performed: Colonoscopy with anesthesia Same procedure as scheduled: Yes Indications: Screening colonoscopy Surgeon: Lynda Hull Procedure Notes Procedure in detail: Preop diagnosis: Screening colonoscopy Postop diagnosis: Same Operative procedure: Colonoscopy with anesthesia Findings: Normal colonoscopy. No polyps, no diverticulosis. Procedure: Patient placed in lateral position. Rectal exam performed showing normal tone no masses. Colonoscope inserted into the rectum and advanced to ileocecal valve with minimal difficulty. We did apply abdominal pressure for the ascending colon. Insufflation extraction of the scope including retroflex had the above findings Impression: Normal colonoscopy. No polyps, no diverticulosis Plan: Repeat colonoscopy in 10 years unless otherwise indicated by change in clinical condition Specimen(s): none sent Complications: none Post-procedure Recommendations: Colonoscopy in 10 years Follow up: as needed Disposition: PACU
[2023-10-24 08:59] VITALS: BP 90/55; PULSE 73; RESP 14; TEMP 36.2; O2SAT 95
[2023-10-24 09:04] VITALS: BP 96/58; PULSE 71; RESP 14; O2SAT 98
[2023-10-24 09:08] VITALS: BP 98/61; PULSE 70; RESP 14; O2SAT 98
[2023-10-24 09:12] VITALS: BP 109/79; PULSE 64; RESP 14; O2SAT 98
[2023-10-24 09:13] VITALS: PULSE 108; RESP 12; TEMP 36.4; O2SAT 100
== END 2023-10-24 09:28 | disposition home or self-care (01) ==
PROVIDERS: Family Provider Family Medicine; PCP Family Medicine; Referring Provider Surgery; Visit Provider Surgery
PROC: 0DJD8ZZ Inspection of Lower Intestinal Tract, Via Natural or Artificial Opening Endoscopic (ICD-10-PCS; CPT 45378; principal; 2023-10-24 08:15)
DX: Z12.11 Encounter for screening for malignant neoplasm of colon (principal)
CPT/HCPCS: 45378; J2704

== ENCOUNTER 2023-12-05 08:58 | Emergency (ER) | payer OTHER, SELFPAY ==
[2023-12-05] VITALS (16 sets, daily range): BP systolic 115–151; BP diastolic 56–69; PULSE 53–104; RESP 8–24; TEMP 36.5; O2SAT 99–100; BMI 21.6
--- NOTE | 2023-12-05 09:11 | EKG_ITS ---
[address] [address] [address] [address] Test Date: 2023-12-05 Pat Name: Kezia Auguste Department: Room: Gender: Female [employer]: ZAHEER : 1965 Requested By: Order Number: [id number] Reading MD: Brennon Hawkins MD Measurements Intervals [place] Rate: 55 P: 58 [place]: 146 QRS: 19 QRSD: 80 T: 44 QT: 428 QTc: 409 Interpretive Statements Sinus bradycardia Electronically Signed On 12-05-2023 12:55:05 PDT by Brennon Hawkins MD
--- NOTE | 2023-12-05 09:30 | DI.RAD.S_ITS ---
PROCEDURE: XR CHEST 1V INDICATIONS: chest pain TECHNIQUE: One view of the chest was acquired. COMPARISON: None. FINDINGS: Surgical changes and devices: None. Lungs and pleura: Lungs are clear. No pleural effusions or pneumothorax. Mediastinum: Mediastinal contours appear normal. Heart size is normal. Bones and chest wall: No suspicious bony lesions. Overlying soft tissues appear unremarkable. IMPRESSION: No acute cardiopulmonary abnormality is seen. Dictated by: Lucas Capone M.D. on 12/05/2023 at 10:37 Approved by: Lucas Capone M.D. on 12/05/2023 at 10:37
[2023-12-05 09:53] LABS: Add Manual Diff / Slide Review NO; Basophils Absolute Auto 100 /uL (0-100); Basophils Percent Auto 1.3 % (0-2); Eosinophils Absolute Auto 100 /uL (0-450); Eosinophils Percent Auto 1.9 % (2-4); Hematocrit 39.3 % (36-46); Hemoglobin 13.4 g/dL (12.0-16.0); Lymphocytes Absolute Auto 1500 /uL (1100-4500); Lymphocytes Percent Auto 32.2 % (25-40); Mean Corpuscular HGB Conc 34.1 % (30-36); Mean Corpuscular Hemoglobin 30.7 PG (26-34); Mean Corpuscular Volume 90.1 fL (80-100); Monocytes Absolute Auto 300 /uL (0-900); Monocytes Percent Auto 7.3 % (3-14); Neutrophils Absolute Auto 2600 /uL (1500-7000); Neutrophils Percent Auto 57.3 % (50-75); Platelet Count 255 X10^3/uL (150-400); Red Blood Cell Count 4.36 X10^6/uL (4.0-5.2); Red Cell Distribution Width 12.8 % (11.6-14.8); White Blood Cell Count 4.6 X10^3/uL (4.5-11.0)
[2023-12-05 10:06] LABS: Prothrombin Time 11.1 SECONDS (9.4-12.5)
[2023-12-05 10:09] LABS: PTT Partial Thromboplastin Tim 23 SECONDS (25.1-36.5)
[2023-12-05 10:12] LABS: Alanine Aminotransferase 14 IU/L (<35); Albumin 4.4 g/dL (3.5-5.0); Albumin Globulin Ratio 1.3 (1.0-2.8); Alkaline Phosphatase 48 U/L (38-126); Aspartate Aminotransferase 20 IU/L (14-36); BUN Creatinine Ratio 22.4 (6-22); Bilirubin Total 0.9 mg/dL (0.2-1.3); Blood Urea Nitrogen 17 mg/dL (7-17); Calcium 9.1 mg/dL (8.4-10.2); Carbon Dioxide 27 mmol/L (22-32); Chloride 104 mmol/L (98-107); Creatine Kinase 49 U/L (30-135); Estimated Glomerular Filt Rate > 60 mL/min (>60); Globulin 3.3 g/dL (1.7-4.1); Glucose 96 mg/dL (70-100); HEMOLYSIS < 15 (0-50); Lipase 159 U/L (23-300); Magnesium 2.1 mg/dL (1.6-2.3); Potassium 3.8 mmol/L (3.4-5.1); Sodium 137 mmol/L (137-145); Total Protein 7.7 g/dL (6.3-8.2)
--- NOTE | 2023-12-05 10:12 | ED_ITS ---
HPI - General Adult General Chief complaint: Syncope Stated complaint: low bp, near syncope, sent by [facility] Time Seen by Provider: 12/05/23 09:33 History of Present Illness HPI narrative: 58-year-old female has had 2 months duration of intermittent low blood pressure problems, feeling occasionally that she might pass out. History of remote palpitations having worn a Holter at age 19, no specific dysrhythmia diagnosis recalled, no cardiac medical interventions. History of mitral valve prolapse. No known history of atrial flutter or fibrillation. No known history of sinus bradycardia or tachycardia rhythm problems known. She felt that she had low blood pressure yesterday, home blood pressure cuff recorded 80, did not seek care yesterday, mentioned to her primary care provider today who advised that she come in for evaluation. She denies pain to her chest, abdomen, back, head, neck, upper extremities, lower extremities. She does not have problems breathing. No black or red stools. No diarrhea. No nausea or vomiting. No diaphoresis. No sensation of palpitations or fast heart rate sensation. No new medications or change in medications. She is vegan, no dietary changes recent. Denies drug or alcohol use. She does not recall anything that brings on the symptoms or helps the symptoms go away. No testing thus far for this condition the last couple of months. Related Data Home Medications Medication Instructions Recorded Confirmed ascorbic acid (vitamin C) 1,000 mg 1 g PO Q6H 03/04/23 12/05/23 capsule polysaccharide iron complex 125 mg PO DAILY 03/04/23 12/05/23 (NovaFerrum) vitamin D3 25 mcg-vitamin K2 20 cap PO 03/04/23 12/05/23 mcg-olive leaf extract 250 mg capsule Previous Rx's Medication Instructions Recorded buspirone 10 mg tablet 10 mg PO BID PRN anxiety #60 tabs 03/04/23 peg 3350-sod sulf,cjcyc-kyz-cpu 1,000 ml PO DIRECTED #2,000 mL 06/12/23 178.7-7.3-0.5-1.12-0.9 gram oral soln (Suflave) estradiol 0.05 mg/24 hr semiweekly 1 patch transdermal 2XW #8 ea 07/03/23 transdermal patch progesterone micronized 200 mg 200 mg PO DAILY Hormone 07/14/23 capsule replacement therapy #90 caps Allergies Allergy/AdvReac Type Severity Reaction Status Date / Time No Known Drug Allergies Allergy Verified 12/05/23 08:41 Review of Systems Review of Systems Narrative: see HPI Patient History Medical History Postmenopausal bleeding Postmenopausal HRT (hormone replacement therapy) Social History Smoking Status: Never smoker Smoking Status: Never smoker Substance Use Type: does not use Exam Narrative Exam Narrative: GENERAL: Well-developed patient, in mild distress. HEAD: Atraumatic. Normocephalic. EYES: Pupils equal round and reactive. Extraocular motions intact. No scleral icterus. No injection or drainage. ENT: Nose without bleeding, purulent drainage. Throat without erythema, tonsillar hypertrophy or exudate. Airway patent. NECK: Trachea midline. Non tender CARDIOVASCULAR: Regular rate and rhythm without murmurs, gallops, or rubs. RESPIRATORY: Clear to auscultation. Breath sounds equal bilaterally. No wheezes, rales, or rhonchi. GASTROINTESTINAL: Abdomen soft, non-tender, nondistended. EXTREMITIES: No edema or joint tenderness. BACK: Nontender without deformity or crepitance. No flank tenderness. NEURO: AOx3. SKIN: No rash or erythema of visible areas Initial Vital Signs Initial Vital Signs: Vital Signs Pulse Rate 104 H 12/05/23 09:06 Respiratory Rate 14 12/05/23 09:06 Pulse Oximetry 100 12/05/23 09:06 Course Orders Ordered: ED Orders 12/05/23 12:52 Troponin I Stat Vital Signs Vital signs: Vital Signs - 8 hr 12/05/23 13:00 12/05/23 13:00 12/05/23 13:30 Pulse Rate 56 L Respiratory Rate 10 L Blood Pressure 129/60 133/59 L Pulse Oximetry 100 12/05/23 13:30 Pulse Rate 53 L Respiratory Rate 11 L Blood Pressure Pulse Oximetry 100 Medical Decision Making Lab Data Lab results reviewed: Yes I reviewed the patient's lab results. 12/05/23 09:45 12/05/23 09:45 Labs: Lab Results 12/05/23 12/05/23 Range/Units 09:45 12:52 WBC 4.6 (4.5-11.0) X10^3/uL RBC 4.36 (4.0-5.2) X10^6/uL Hgb 13.4 (12.0-16.0) g/dL Hct 39.3 (36-46) % MCV 90.1 (80-100) fL MCH 30.7 (26-34) PG MCHC 34.1 (30-36) % RDW 12.8 (11.6-14.8) % Plt Count 255 (150-400) X10^3/uL Neut % (Auto) 57.3 (50-75) % Lymph % (Auto) 32.2 (25-40) % [place] % (Auto) 7.3 (3-14) % Eos % (Auto) 1.9 L (2-4) % Baso % (Auto) 1.3 (0-2) % Neut # (Auto) 2600 (0894-3844) /uL Lymph # (Auto) 1500 (4025-3025) /uL [place] # (Auto) 300 (0-900) /uL Eos # (Auto) 100 (0-450) /uL Baso # (Auto) 100 (0-100) /uL PT 11.1 (9.4-12.5) SECONDS INR 1.0 (0.9-1.3) APTT 23 L (25.1-36.5) SECONDS Sodium 137 (137-145) mmol/L Potassium 3.8 (3.4-5.1) mmol/L Chloride 104 (98-107) mmol/L Carbon Dioxide 27 (22-32) mmol/L BUN 17 (7-17) mg/dL Creatinine 0.76 (0.52-1.04) mg/dL Estimated GFR > 60 (>60) mL/min BUN/Creatinine Ratio 22.4 H (6-22) Glucose 96 (70-100) mg/dL Calcium 9.1 (8.4-10.2) mg/dL Magnesium 2.1 (1.6-2.3) mg/dL Total Bilirubin 0.9 (0.2-1.3) mg/dL AST 20 (14-36) IU/L ALT 14 (<35) IU/L Alkaline Phosphatase 48 (38-126) U/L Total Creatine Kinase 49 (30-135) U/L Troponin I < 0.012 < 0.012 (0.01-0.034) ng/mL NT-Pro-B Natriuret Pep 164 H (<125) pg/mL Total Protein 7.7 (6.3-8.2) g/dL Albumin 4.4 (3.5-5.0) g/dL Globulin 3.3 (1.7-4.1) g/dL Albumin/Globulin Ratio 1.3 (1.0-2.8) Lipase 159 (23-300) U/L ECG Data Attestation: I personally reviewed and interpreted this ECG as follows: Interpretation: Sinus bradycardia with rate 55. No obvious ST segment elevation. Some movement artifact noted. TX 146, QRS 80, QTC 409. MDM Narrative Medical decision making narrative: 58-year-old female with intermittent low blood pressure problems for the last couple of months, home blood pressure cuff monitoring low readings, cuff has not been calibrated against medical blood pressure cuff, however associated with symptoms of weakness in near-syncope, 1st seeking care for this condition now. Afebrile, sirs screen negative. Unremarkable physical exam. Blood pressure adequate here without specific treatment. DDx consider intermittent bradycardia, tachyarrhythmia intermittent although she does not sense palpitations, pots disease, other. Screening EKG unremarkable. Labs pending. Screening labs unremarkable including troponin. Chest x-ray unremarkable. Patient feels better would like to go home. Further workup as an outpatient for now. Critical Care Time Critical Care Time Total Critical Care Time: 31 Attestation: The high probability of a clinically significant, sudden or life threatening deterioration of the [cardiopulmonary] system(s) required my full and direct attention, intervention and personal management. The aggregate critical care time was [31] minutes. This time is in addition to time spent performing reported procedures but includes the following: [x] Data Review and interpretation [x] Patient assessment and monitoring of vital signs [x] Documentation [x] Medication orders and management Discharge Plan Departure Patient Disposition: Home Clinical Impression: Near syncope, Blood pressure decreased Activity Restrictions/Additional Instructions: Intermittent episodes of low blood pressure and dizziness of unclear cause, screening labs unremarkable, EKG unremarkable. Consider further testing as an outpatient for now, such as echocardiogram, stress testing. Contact information for local terminal manager on-call provided, though your primary care provider might need to make a referral for you, or might prefer use of another terminal manager. Return earlier to this/nearest emergency department for any change worsening symptoms or any concerns prior Prescriptions: No Action Suflave 178.7-7.3-0.5 gram recon soln 1,000 ml PO DIRECTED Qty: 2000 0RF Rx Instructions: take as directed by Physician estradiol 0.05 mg/24 hr patch semiweekly 1 patch transdermal 2XW Qty: 8 12RF Rx Instructions: apply 1 patch for 3 days alternating with 1 patch for 4 days each week for 3 wks per 4-wk cycle progesterone micronized 200 mg capsule 200 mg PO DAILY Qty: 90 3RF Rx Instructions: *Compound* Progesterone 200mg/capsule in olive oil ascorbic acid (vitamin C) 1,000 mg capsule 1 g PO Q6H NovaFerrum 125 mg iron/5 mL liquid 125 mg PO DAILY vit D3-vit K2-olive leaf ext 25 mcg-20 mcg- 250 mg capsule PO Patient Comments: Vitamin D3 25mcg + Vitamin K2 10mcg buspirone 10 mg tablet 10 mg PO BID PRN (Reason: anxiety) Qty: 60 3RF Referrals: Ayaka Oneill MD [Primary Care Provider] - Bhavesh Chao [Non-Staff] - Stand Alone Forms: Patient Portal/API
[2023-12-05 10:23] LABS: NT-proBNP (BNP-Adult 18+) 164 pg/mL (<125); Troponin I < 0.012 ng/mL (0.01-0.034)
[2023-12-05 13:46] LABS: Troponin I < 0.012 ng/mL (0.01-0.034)
== END 2023-12-05 14:08 | disposition home or self-care (01) ==
PROVIDERS: Emergency Provider Emergency Medicine; Family Provider Family Medicine; PCP Family Medicine
DX: R55 Syncope and collapse (principal); R03.1 Nonspecific low blood-pressure reading; R00.1 Bradycardia, unspecified; R07.9 Chest pain, unspecified
CPT/HCPCS: 36415; 71045; 80053; 82550; 83690; 83735; 83880; 84484; 85025; 85610; 85730; 93005; 93010; 99283; 99284

== ENCOUNTER → 2023-12-16 11:24 | Outpatient (CLI) | payer OTHER, SELFPAY ==
[2023-12-16 19:59] LABS: Free T3, Triiodothyronine Free 3.57 pg/mL (2.77-5.27)
== END ==
PROVIDERS: Family Provider Family Medicine; PCP Family Medicine; Visit Provider Family Medicine
DX: I48.91 Unspecified atrial fibrillation (principal); E04.1 Nontoxic single thyroid nodule
CPT/HCPCS: 84443; 84445; 84480; 84481

== ENCOUNTER → 2024-01-02 09:22 | Outpatient (CLI) | payer OTHER, SELFPAY ==
--- NOTE | 2024-01-02 09:30 | DI.ECHO.S_ITS ---
[place] [facility]---------+ [facility] : : [address] : : [place] : : [id number] : : Phone: [phone] Echocardiogram Report + + :Name: NALLELY PAULA Study Date: 01/02/2024 Height: 68 in : :[facility] ReadingLocation: Weight: 140 lb : : Gender: Female BSA: 1.8 m2 : :: 1965 Age: 58 yrs BP: 120/62 mmHg: :Reason For Study: ATRIAL FIBRILLATION : :Ordering Physician: RICKI, : :FELIPE Performed By: Primo Ryan : :Referring: FELIPE ROBISON : + + Interpretation Summary The ejection fraction is estimated to be 60-65%. Grade II diastolic dysfunction. The left atrium is moderately dilated. The right ventricle is normal in size and function. The right atrium is mildly dilated. There is moderate tricuspid regurgitation. The right ventricular systolic pressure is estimated to be at least 52 mmHg based on an estimated right atrial pressure of 8 mm Hg. The patient was in sinus bradycardia with heart rates between 40-50 bpm during the exam. Procedure: A two-dimensional transthoracic echocardiogram with color flow and Doppler was performed. The study quality was technically good. There is no prior echocardiogram noted for this patient. The patient was in sinus bradycardia with heart rates between 40-50 bpm during the exam. Left Ventricle: The left ventricle is normal in size. There is normal left ventricular wall thickness. There is no ventricular septal defect visualized. The ejection fraction is estimated to be 60-65%. There are no focal wall motion abnormalities. Diastolic parameters suggest a pseudonormalization pattern, consistent with probable elevated filling pressures. Right Ventricle: The right ventricle is normal in size and function. Atria: The left atrium is moderately dilated. The right atrium is mildly dilated. There is no Doppler evidence for an atrial septal defect. Mitral Valve: The mitral valve is normal in structure and function. There is trace mitral regurgitation. Aortic Valve: The aortic valve is trileaflet. The aortic valve opens well. There is no aortic valve stenosis. No aortic regurgitation is present. Tricuspid Valve: The tricuspid valve is normal in structure and function. There is moderate tricuspid regurgitation. The right ventricular systolic pressure is estimated to be at least 52 mmHg based on an estimated right atrial pressure of 8 mm Hg. Pulmonic Valve: The pulmonic valve is normal in structure and function. There is trace pulmonic regurgitation. Great Vessels: The aortic root is normal size. The dimensions of the ascending aorta are normal. The pulmonary artery is normal size. The IVC is dilated (diameter is greater than 2.1 cm) yet it collapses greater than 50% with a sniff. This suggests a right atrial pressure of 8 mm Hg. Pericardium/ Pleura There is no pericardial effusion. There is no pleural effusion. MMode/2D Measurements & Calculations LVIDd: 5.1 cm LVOT diam: 1.8 cm LVIDs: 3.3 cm Ao root diam: 2.6 cm FS: 35.0 % asc Aorta Diam: 2.8 cm EPSS: 0.50 cm Ao Arch Diam (Prox Trans): 1.7 cm IVSd: 0.86 cm LVPWd: 0.89 cm LV oates. diameter/BSA (cm/m^2): 2.9 LV sys. diameter/BSA (cm/m^2): 1.9 LA A2 area: 23.5 cm2 RA long axis: 5.3 cm LA A4 area: 21.4 cm2 RA area: 18.7 cm2 LA length (vol): 5.6 cm RA vol: 56.0 ml LA vol: 75.8 ml RA : 31.9 ml/m2 LA vol index: 43.2 ml/m2 IVC diam: 2.7 cm RVD1 (basal): 3.1 cm RVD2 (mid): 2.6 cm TAPSE: 3.4 cm Doppler Measurements & Calculations Ao V2 max: 170.0 cm/sec LVOT Max José Antonio: 136.6 cm/sec Ao V2 mean: 120.6 cm/sec LV V1 max P.5 mmHg Ao max P.6 mmHg LV V1 VTI: 35.9 cm Ao mean P.3 mmHg DIDI(I,D): 2.1 cm2 Ao V2 VTI: 43.4 cm DIDI(V,D): 2.0 cm2 sev ratio: 0.83 DIDI indexed to BSA (cm^2/m^2): 1.2 MV E max josé antonio: 87.8 cm/sec TR max josé antonio: 331.7 cm/sec MV A max josé antonio: 68.0 cm/sec TR max P.0 mmHg MV E/A: 1.3 PA V2 max: 78.6 cm/sec Med Peak E' José Antonio: 8.6 cm/sec PA V2 mean: 58.8 cm/sec E/E' med: 10.3 PA mean P.5 mmHg Lat Peak E' José Antonio: 7.4 cm/sec PA pr(Accel): 12.2 mmHg E/E' lat: 11.8 E/e' average: 11.0 MV dec time: 0.26 sec SV(LVOT): 90.0 ml Reading Physician:12:08 PM
== END ==
PROVIDERS: Family Provider Family Medicine; PCP Family Medicine; Referring Provider Family Medicine; Visit Provider Family Medicine
DX: I48.91 Unspecified atrial fibrillation (principal); I07.1 Rheumatic tricuspid insufficiency
CPT/HCPCS: 93306

== ENCOUNTER → 2024-07-12 15:20 | Outpatient (CLI) | payer OTHER, SELFPAY ==
--- NOTE | 2024-07-12 15:22 | DI.RAD.S_ITS ---
PROCEDURE: XR FACIAL BONES MIN 3V INDICATIONS: Facial trauma TECHNIQUE: 3 views of the facial bones were acquired. COMPARISON: None. FINDINGS: Sinuses: Visualized sinuses demonstrate no air-fluid levels or mucosal thickening. Bones: Slightly indented fracture of the nasal bone tip. Soft tissues: No suspicious soft tissue densities. IMPRESSION: Slightly indented fracture of the nasal bone tip, seen on the lateral view. Dictated by: Alvarez Campbell M.D. on 07/12/2024 at 15:52 Approved by: Alvarez Campbell M.D. on 07/12/2024 at 15:53
== END ==
PROVIDERS: Family Provider Family Medicine; PCP Family Medicine; Referring Provider Family Medicine; Visit Provider Registered Nurse
DX: S09.8XXA Other specified injuries of head, initial encounter (principal); X58.XXXA Exposure to other specified factors, initial encounter
CPT/HCPCS: 70150

== ENCOUNTER → 2024-10-25 15:56 | Outpatient (CLI) | payer OTHER, SELFPAY ==
--- NOTE | 2024-10-25 15:57 | DI.MG.S_ITS ---
MM screening mammo BI: 10/25/2024. BI-RADS: 0 CLINICAL: 59-year old female for bilateral screening mammogram. Tyrer-Cuzick lifetime risk of 14.4%. No personal or first-degree family history of breast cancer. PRIOR EXAMS: 08/02/2021, 06/03/2019. MAMMOGRAPHY TECHNIQUE: 2D and 3D (tomosynthesis) digital mammographic views obtained, with additional images as needed for full coverage. Current study was also evaluated with a Computer Aided Detection (CAD) system. DENSITY D. The breasts are extremely dense, which lowers the sensitivity of mammography. MAMMOGRAPHY FINDINGS Right: No suspicious mass, asymmetry, microcalcification, or other abnormality seen. Left: MLO only, Lower, Posterior depth: Asymmetry needing additional imaging evaluation. IMPRESSION: Right * No evidence of malignancy. Left (Asymmetry): MLO only, Lower, Posterior depth * Incomplete - asymmetry needing additional imaging evaluation. RECOMMENDATIONS Left: MLO only, Lower, Posterior depth * Further evaluation with diagnostic mammography and diagnostic ultrasound. Ultrasound to be performed only if needed. OVERALL ASSESSMENT CATEGORY BI-RADS-0: Incomplete - Need Additional Imaging Evaluation. ELECTRONICALLY SIGNED: Hannah Pickering M.D. on 10/29/2024 at 11:52:14 AM PT Interpreting Station ID: [id number]
== END ==
LOC: MAMMO 15:56
PROVIDERS: Family Provider Family Medicine; PCP Family Medicine; Referring Provider Family Medicine; Visit Provider Family Medicine
DX: Z12.31 Encounter for screening mammogram for malignant neoplasm of breast (principal); Z79.890 Hormone replacement therapy; R92.343 Mammographic extreme density, bilateral breasts; N64.89 Other specified disorders of breast
CPT/HCPCS: 77063; 77067

== ENCOUNTER → 2024-12-12 15:36 | Outpatient (CLI) | payer OTHER, SELFPAY ==
[2024-12-12 16:21] LABS: Influenza A - CEPHEID Flu A NEGATIVE (NEGATIVE); Influenza B - CEPHEID Flu B NEGATIVE (NEGATIVE)
[2024-12-12 16:23] LABS: COVID-19 CEPHEID 4-PLEX PCR Negative (Negative)
== END ==
PROVIDERS: Family Provider Family Medicine; PCP Family Medicine; Visit Provider Nurse Practitioner Family
DX: J02.9 Acute pharyngitis, unspecified (principal)
CPT/HCPCS: 87070; 87637

== ENCOUNTER → 2024-12-12 15:41 | Outpatient (CLI) | payer OTHER, SELFPAY ==
--- NOTE | 2024-12-12 15:42 | DI.RAD.S_ITS ---
PROCEDURE: XR CHEST 2V INDICATIONS: Cough TECHNIQUE: 2 views of the chest were acquired. COMPARISON: [facility], CR, XR CHEST 1V, 12/05/2023, 9:48. FINDINGS: Surgical changes and devices: None. Lungs and pleura: Lungs are clear. No pleural effusions or pneumothorax. Mediastinum: Mediastinal contours are normal. Heart size is normal. Bones and chest wall: No suspicious bony abnormalities. Soft tissues appear unremarkable. IMPRESSION: No acute cardiopulmonary abnormality is seen. Dictated by: Lucsa Capone M.D. on 12/12/2024 at 16:57 Approved by: Lucas Capone M.D. on 12/12/2024 at 16:58
== END ==
LOC: RAD 15:42
PROVIDERS: Family Provider Family Medicine; PCP Family Medicine; Referring Provider Nurse Practitioner Family; Visit Provider Nurse Practitioner Family
DX: R05.9 Cough, unspecified (principal); J02.9 Acute pharyngitis, unspecified
CPT/HCPCS: 71046; 87070; 87637

== ENCOUNTER → 2024-12-20 11:47 | Outpatient (CLI) | payer OTHER, SELFPAY ==
--- NOTE | 2024-12-20 11:49 | DI.MG.S_ITS ---
US breast LT limited, MM diagnostic mammo unilat LT: 12/20/2024 BI-RADS: 2 CLINICAL: 59-year old female for left diagnostic mammogram and left diagnostic breast ultrasound that is a recall from screening on 10/25/2024. Tyrer-Cuzick lifetime risk of 13.4%. No personal or first-degree family history of breast cancer. PRIOR EXAMS Mammogram(s): 10/25/2024. MAMMOGRAPHY TECHNIQUE: 2D and 3D (tomosynthesis) digital mammographic views obtained, with additional images as needed for full coverage. Current study was also evaluated with a Computer Aided Detection (CAD) system. ULTRASOUND TECHNIQUE TARGETED Left Breast Ultrasound: Real-time ultrasound exam was performed focused to area of clinical and/or imaging concern. Real-time hernandez scale and color doppler imaging of the area of clinical interest was performed with image documentation. DENSITY Left: D. The breast is extremely dense, which lowers the sensitivity of mammography. MAMMOGRAPHY FINDINGS Left (finding-1): MLO only, Lower, Posterior depth, measuring 1.1cm: Correlating with findings on screening mammogram, there is an asymmetry seen only on one view. The asymmetry is oval and equal density. ULTRASOUND FINDINGS Left (finding-1): Lower Inner at 7:00, 4 cm from nipple, measuring 0.8 x 0.6 x 0.8 cm. Previous report: MLO only, Lower: There is a simple anechoic cyst showing posterior acoustic enhancement. Left: Lower Inner at 7:00, 4 cm from nipple, measuring 0.5 x 0.4 x 0.5 cm: There is a simple anechoic cyst showing posterior acoustic enhancement. IMPRESSION: Left * No evidence of malignancy with benign findings. RECOMMENDATIONS Bilateral * Annual screening mammography. COMMENTS: Findings and recommendations were conveyed to the patient during today's evaluation. OVERALL ASSESSMENT CATEGORY BI-RADS-2: Benign. [employer] recommends annual screening mammography beginning at age 40 for women with average risk of breast cancer. ELECTRONICALLY SIGNED: Mei Ramos M.D. on 12/20/2024 at 01:13:06 PM PT Interpreting Station ID: [id number]
== END ==
PROVIDERS: Family Provider Family Medicine; PCP Family Medicine; Referring Provider Family Medicine; Visit Provider Family Medicine
DX: R92.8 Other abnormal and inconclusive findings on diagnostic imaging of breast (principal); R92.342 Mammographic extreme density, left breast; N60.02 Solitary cyst of left breast
CPT/HCPCS: 76642; 77065; G0279

== ENCOUNTER → 2025-03-09 08:31 | Outpatient (CLI) | payer OTHER, SELFPAY ==
[2025-03-09 09:15] LABS: Blood Urea Nitrogen 14 mg/dL (7-17); Calcium 9.1 mg/dL (8.4-10.2); Carbon Dioxide 28 mmol/L (22-32); Chloride 105 mmol/L (98-107); Cholesterol 171 mg/dL (140-199); Estimated Glomerular Filt Rate > 60 mL/min (>60); Glucose 100 mg/dL (70-99); HDL Cholesterol 74 mg/dL (40-60); HEMOLYSIS < 15 (0-50); Potassium 4.2 mmol/L (3.4-5.1); Sodium 140 mmol/L (137-145); Triglycerides 71 mg/dL (35-150)
== END ==
PROVIDERS: Family Provider Family Medicine; PCP Family Medicine; Referring Provider Family Medicine; Visit Provider Family Medicine
DX: Z13.1 Encounter for screening for diabetes mellitus (principal); Z13.6 Encounter for screening for cardiovascular disorders; I48.19 Other persistent atrial fibrillation; I47.10 Supraventricular tachycardia, unspecified
CPT/HCPCS: 36415; 80048; 80061